=== PATIENT | female | born 1980 | race Caucasian/White ===

== ENCOUNTER 2018-09-27 18:02 | Emergency (ER) | payer OTHER ==
[~2018-09-27] VITALS: Ht 160 cm; Wt 87.5 kg
[2018-09-27 18:29] VITALS: BP 130/82
[2018-09-27] MEDS ORDERED: orphenadrine citrate 60mg/2ml inj. IM ONE (20:45)
[2018-09-27] MEDS ORDERED: ketorolac tromethamine 15mg/ml inj. IM ONE (20:45)
[2018-09-27] MEDS ORDERED: ORPH100T2 PO (21:36)
[2018-09-27] MEDS ORDERED: NAPR-56 PO (21:36)
== END 2018-09-27 21:50 | disposition home or self-care (01) ==
LOC: ER 18:03
DX: G44.209 Tension-type headache, unspecified, not intractable (principal); M25.519 Pain in unspecified shoulder; M54.9 Dorsalgia, unspecified; Z88.0 Allergy status to penicillin; V49.60XA Unspecified car occupant injured in collision with unspecified motor vehicles in traffic accident, initial encounter; Y93.89 Activity, other specified; Y92.89 Other specified places as the place of occurrence of the external cause; Y99.8 Other external cause status
CPT/HCPCS: 70450; 72125; 72128; 72131; 96372; 99284; J1885; J2360

== ENCOUNTER 2018-10-25 19:17 | Emergency (ER) | payer OTHER ==
[~2018-10-25] VITALS: Ht 160 cm; Wt 87.0 kg
[~2018-10-25 19:17] MED LIST: NAPR-56 PO; ORPH100T2 PO
[2018-10-25 19:24] VITALS: BP 123/88
[2018-10-25] MEDS ORDERED: DIAZ5TAB PO (20:29)
[2018-10-25] MEDS ORDERED: ketorolac trometh inj. 60 MG/2 ML VIAL IM ONE (20:30)
== END 2018-10-25 20:46 | disposition home or self-care (01) ==
LOC: ER 19:17
DX: S13.4XXA Sprain of ligaments of cervical spine, initial encounter (principal); M62.838 Other muscle spasm; R10.11 Right upper quadrant pain; R10.13 Epigastric pain; Z88.0 Allergy status to penicillin; V49.88XA Car occupant (driver) (passenger) injured in other specified transport accidents, initial encounter; Y93.89 Activity, other specified; Y92.413 State road as the place of occurrence of the external cause; Y99.9 Unspecified external cause status
CPT/HCPCS: 96372; 99283; J1885

== ENCOUNTER 2024-01-13 23:11 | Emergency (ER) | payer BC ==
[~2024-01-13] VITALS: Ht 160 cm; Wt 72.7 kg
[~2024-01-13 23:11] MED LIST changes: +DIAZ5TAB PO; -NAPR-56 PO; -ORPH100T2 PO; +ORPH100T4 PO
[2024-01-13 23:25] VITALS: PULSE 86; RESP 16; TEMP 98.1; O2SAT 100
== END 2024-01-14 03:28 | disposition left against medical advice (07) ==
LOC: ER 23:11
DX: S61.217A Laceration without foreign body of left little finger without damage to nail, initial encounter (principal); Z53.21 Procedure and treatment not carried out due to patient leaving prior to being seen by health care provider; X58.XXXA Exposure to other specified factors, initial encounter; Y93.89 Activity, other specified; Y92.89 Other specified places as the place of occurrence of the external cause; Y99.8 Other external cause status
CPT/HCPCS: 99281